=== PATIENT | female | born 1990 | race Caucasian/White ===

== ENCOUNTER 2020-11-26 21:48 | Emergency (ER) | payer OTHER ==
[~2020-11-26] VITALS: Ht 172.7 cm; Wt 141.5 kg
[2020-11-26 21:51] VITALS: BP 103/59
--- NOTE | 2020-11-26 22:17 | NUR ---
30 Y/O FEMALE PRESENTS TO THE ED WITH FATIGUE; PT STATES THAT SHE HAS LOSS OF APPETITE, AND FEELING "WEAK". A&OX4. DENIES N/V/D; SKIN IS PINK/WARM/DRY; EVEN AND STEADY GAIT; LUNGS CLEAR BL; HR EVEN AND REGULAR; PT DENIES ANY FEVER, CP, SOB, OR COUGH AT THIS TIME; PATIENT STATES PAIN OF 0/10 AT THIS TIME; VSS; PATIENT POSITIONED FOR COMFORT; HOB ELEVATED; BEDRAILS UP X2; BED DOWN. ER MADE AWARE OF PT STATUS. PMH: C SECTION (11/04/20); CYST REMOVAL IN THE R FALLOPIAN TUBE NKA
--- NOTE | 2020-11-26 22:20 | NUR ---
LAB AT BEDSIDE
--- NOTE | 2020-11-26 22:26 | NUR ---
URINE SAMPLE HANDED TO DAMIR CASTELLANOS
[2020-11-26 22:38] LABS: BASOPHILS # (AUTO) 0.1 K/uL (0.00-0.22); BASOPHILS % (AUTO) 0.6 % (0.0-2.0); EOSINOPHILS % (AUTO) 0.1 % (0.0-4.0); HEMATOCRIT 26.5 % (36-48); HEMOGLOBIN 8.6 g/dL (12.0-16.0); LYMPHOCYTES # (AUTO) 1.6 K/uL (2.5-16.5); LYMPHOCYTES % (AUTO) 17.8 % (20.5-51.1); MEAN CORPUSCULAR HEMOGLOBIN 25 pg (27-31); MEAN CORPUSCULAR HGB CONC 32 g/dL (33-37); MEAN CORPUSCULAR VOLUME 78.2 fL (80-94); MONOCYTES # (AUTO) 0.6 K/uL (0.8-1.0); MONOCYTES % (AUTO) 6.8 % (1.7-9.3); NEUTROPHILS # (AUTO) 6.7 K/uL (1.8-7.7); NEUTROPHILS % (AUTO) 74.7 % (42.2-75.2); PLATELET COUNT (AUTO) 194 K/uL (140-450); RED BLOOD CELL COUNT(AUTO) 3.39 MIL/uL (4.20-5.40); RED CELL DISTRIBUTION WIDTH 17.3 % (11.6-13.7); WHITE BLOOD COUNT (AUTO) 8.9 K/uL (4.8-10.8)
--- NOTE | 2020-11-26 22:46 | NUR ---
PT AMBULATED TO BED 08, STEADY GAIT
[2020-11-26 22:49] LABS: APPEARANCE,URINE CLOUDY (CLEAR); BILIRUBIN,URINE 1+ (NEGATIVE); BLOOD, URINE 3+ (NEGATIVE); COLOR,URINE YELLOW (YELLOW); LEUKOCYTE ESTERASE ,URINE 2+ (NEGATIVE); NITRITE, URINE NEGATIVE (NEGATIVE); UGLUCOSE NEGATIVE (NEGATIVE)
[2020-11-26 22:53] LABS: ALBUMIN 2.7 g/dL (3.4-5.0); ANION GAP 12.7 (8-16); CARBON DIOXIDE 27.7 mmol/L (21-32); CREATININE 0.9 mg/dL (0.6-1.3); POTASSIUM 3.4 mmol/L (3.5-5.1); TOTAL BILIRUBIN 0.5 mg/dL (0.0-1.0)
[2020-11-26 23:09] LABS: RBC,URINE TOO NUMEROUS TO COUN /HPF (0-5)
--- NOTE | 2020-11-26 23:40 | NUR ---
DR MCNEAL AT BEDSIDE EXAMINING PT
--- NOTE | 2020-11-26 23:56 | NUR ---
XRAY AT BEDSIDE
[2020-11-27] MEDS ORDERED: PROM118S5 PO (00:35)
--- NOTE | 2020-11-27 00:50 | NUR ---
Patient discharged with v/s stable. Written and verbal after care instructions given and explained. Patient verbalized understanding. Ambulatory with steady gait. All questions addressed prior to discharge. Advised to follow up with PMD.
[2020-11-27 00:56] VITALS: BP 103/59
== END 2020-11-27 00:50 | disposition home or self-care (01) ==
LOC: MED 21:48
DX: R05 Cough (principal); D64.9 Anemia, unspecified
CPT/HCPCS: 36415; 71045; 80053; 81001; 82728; 83540; 85025; 86886; 86900; 86901; 87086; 99284

== ENCOUNTER 2021-06-21 10:19 | Day surgery (SDC) | payer OTHER, SELFPAY ==
[~2021-06-21] VITALS: Ht 170.2 cm; Wt 127.5 kg
[~2021-06-21 10:19] MED LIST: PROM118S5 PO
[2021-06-21] MEDS ORDERED: MIDAZOLAM 5 MG/5 ML VIAL ONE (13:06)
[2021-06-21] MEDS ORDERED: fentaNYL citrate 0.05 MG/ML VIAL ONE (13:06)
[2021-06-21] MEDS ORDERED: LIDOCAINE 2% 100 MG/5 ML UJET TP ONE ×2 (13:06→13:50)
[2021-06-21] MEDS ORDERED: MIDAZOLAM 2 MG/2 ML VIAL IVP ONE (13:50)
[2021-06-21] MEDS ORDERED: fentaNYL citrate 0.05 MG/ML VIAL IVP ONE (13:50)
== END 2021-06-21 14:33 | disposition home or self-care (01) ==
LOC: MMU 10:19 → MDS 10:19 → MMU 10:21 → MDS 14:33
PROVIDERS: ATTEND Surgery
DX: K63.2 Fistula of intestine (principal); K57.30 Diverticulosis of large intestine without perforation or abscess without bleeding; L02.211 Cutaneous abscess of abdominal wall; Z79.899 Other long term (current) drug therapy
CPT/HCPCS: 45378; 81025; J2250; J3010